=== PATIENT | female | born 1940 | race African-American/Black ===

== ENCOUNTER 2020-12-10 15:05 | Outpatient (NON) | payer MEDICARE, SELFPAY ==
[2020-12-10 15:48] LABS: Add Urine Microscopic? NO; Appearance Urine Clear (Clear); Bilirubin Urine Negative (Negative); Blood Urine Negative (Negative); Color Urine Yellow (Yellow); Glucose Urine UA Negative (Negative); Ketones Urine Negative (Negative); Leukocyte Esterase Ur Negative LEU/UL (NEGATIVE); Nitrate Urine Negative (Negative); Protein Urine Negative (Negative); Specific Grav Ur 1.014 (1.001-1.035); Urobilinogen Urine Negative mg/dL (<2.0)
== END 2020-12-10 15:06 ==
PROVIDERS: PCP Family Medicine; Visit Provider Nurse Practitioner Family
DX: N39.0 Urinary tract infection, site not specified (principal)
CPT/HCPCS: 81003; 87086; 87088

== ENCOUNTER → 2021-08-21 14:26 | Outpatient (CLI) | payer MEDICARE, SELFPAY ==
--- NOTE | ~2021-08-21 | MM_ITS ---
EXAMINATION: MM screening [facility] BI w ary HISTORY: Screening TECHNIQUE: Craniocaudal and mediolateral oblique 3-D tomosynthesis images were obtained and synthetic 2-D images were generated. CAD analysis was submitted and interpreted. COMPARISON: Comparison to multiple prior studies sequentially, with oldest reviewed study dated 04/2014. BREAST PARENCHYMAL COMPOSITION: There are scattered areas of fibroglandular density. FINDINGS: There is no evidence of suspicious mass, calcification, or architectural distortion to sugg est malignancy in either breast. There has been no suspicious interval change. IMPRESSION: 1. No mammographic evidence of malignancy. 2. Recommend routine screening mammography in one year. BI-RADS Category 1: Negative Reviewed, dictated and finalized at location A.
== END ==
PROVIDERS: PCP Family Medicine; Visit Provider Obstetrics & Gynecology
DX: Z12.31 Encounter for screening mammogram for malignant neoplasm of breast (principal)
CPT/HCPCS: 77063; 77067

== ENCOUNTER 2022-08-22 18:06 | Emergency (ER) | payer MEDICARE, SELFPAY ==
[2022-08-22] VITALS (11 sets, daily range): BP systolic 125–229; BP diastolic 58–104; PULSE 58–88; RESP 13–20; TEMP 36.2–36.4; O2SAT 98–100
--- NOTE | ~2022-08-22 | XR_ITS ---
XR chest 2V DATE: 08/22/2022 19:32 INDICATION: Chest pain, left arm pain for one week. History of hypertension. TECHNIQUE: PA and lateral views COMPARISON: 05/28/2016 2 view chest FINDINGS: There is cardiac megaly with left ventricular enlargement. Aortic arch calcification. No hi lar or mediastinal enlargement. There is mild atelectasis at the lung bases. The lungs otherwise appear clear. No pleural effusion or pulmonary vascular congestion or pneumothorax. Thoracolumbar dextroscoliosis. IMPRESSION: Mild atelectasis at the lung bases Cardiomegaly, left ventricular prominence Aortic calcification Reviewed, dictated and finalized at location A.
--- NOTE | 2022-08-22 18:13 | ECG_ITS ---
Measurements Intervals [place] Rate: 60 P: 48 AK: 167 QRS: 13 QRSD: 141 T: 29 QT: 429 QTc: 429 Interpretive Statements SINUS RHYTHM RIGHT BUNDLE BRANCH BLOCK ABNORMAL ECG NO PREVIOUS ECG AVAILABLE FOR COMPARISON Electronically Signed On 08-22-2022 21:29:58 CDT by Tashi Ibarra D.O.
[2022-08-22 18:59] LABS: Basophils Absolute Auto 0.1 K/mm3 (0.0-0.1); Basophils Percent Auto 0.7 % (0.2-1.2); Eosinophils Absolute Auto 0.3 K/mm3 (0-0.3); Eosinophils Percent Auto 3.6 % (0-4.4); Hematocrit 36.4 % (37.0-47.0); Hemoglobin 11.5 g/dL (12.0-15.0); Immature Granulocyte Absolute 0.01 K/mm3 (0.00-0.031); Immature Granulocyte Percent A 0.1 % (0-0.5); Lymphocytes Absolute Auto 2.18 K/mm3 (0.9-3.2); Mean Corpuscular HGB Conc 31.6 g/dl (32-36); Mean Corpuscular Hemoglobin 28.7 pg (26-34); Mean Corpuscular Volume 90.8 fl (80-100); Mean Platelet Volume 9.8 fl (7.4-10.4); Monocytes Absolute Auto 0.6 K/mm3 (0.1-0.6); Monocytes Percent Auto 7.6 % (2.6-8.5); Neutrophils Absolute Auto 4.4 K/mm3 (1.3-6.7); Platelet Count Result 250 k/mm3 (150-375); Red Blood Count 4.01 M/mm3 (4.2-5.4); Red Cell Distribution Width 17.8 % (11.5-14.5); White Blood Count 7.5 K/mm3 (4.5-10.0)
[2022-08-22 19:10] LABS: INR 1.1; Partial Thromboplastin Time 29.3 SECONDS (22.3-36.8); Prothrombin Time 13.5 Seconds (11.1-14.7)
[2022-08-22 19:12] LABS: Alanine Aminotransferase 22 U/L (6-35); Albumin Level 4.3 g/dL (3.5-5.1); Alkaline Phosphatase 109 U/L (38-126); Anion Gap 12 mmol/L (8-16); Aspartate Amino Transferase 23 U/L (14-36); Bilirubin,Total 0.6 mg/dL (0.2-1.3); Blood Urea Nitrogen 17 mg/dL (7-17); Calcium 10.1 mg/dL (8.4-10.2); Carbon Dioxide 24 mmol/L (22-30); Chloride 102 mmol/L (98-107); Estimated Glomerular Filt Rate > 60; Glucose 129 mg/dL (65-110); Lipase 35 U/L (23-300); Potassium 3.9 mmol/L (3.4-5.0); Sodium 138 mmol/L (137-145)
[2022-08-22 19:22] LABS: Troponin I < 0.012 ng/mL (0.000-0.034)
--- NOTE | 2022-08-22 21:11 | ED.GENADULT ---
HPI - General Adult General Chief complaint: Unspecified Stated complaint: high bp, L. arm pain Time Seen by Provider: 08/22/22 20:55 History of Present Illness HPI narrative: This is an 82-year-old female with past medical history of hypertension, hypothyroidism, who presents to the emergency department with elevated blood pressure. She states she took her medications as normal and on checking home blood pressures was in the 200s systolic. She denies any associated chest pain, weakness, loss of consciousness, change/loss of vision. She notes for the past week she has had intermittent tingling of the left arm. This does not appear to be any worse since her pressures have elevated. She has no other complaints today Related Data Home Medications Medication Instructions Recorded Confirmed ascorbate calcium (vitamin C) 500 500 mg PO DAILY PRN 09/23/19 04/16/22 mg tablet aspirin 81 mg chewable tablet 81 mg PO DAILY 09/23/19 04/16/22 (Josette Chewable Low Dose Aspirin) cyanocobalamin (vitamin B-12) 500 500 mcg PO DAILY 09/23/19 04/16/22 mcg tablet (Vitamin B-12) solifenacin 5 mg tablet (Vesicare) 5 mg PO DAILY 09/23/19 04/16/22 valacyclovir 1 gram tablet 2,000 mg PO Q12H 09/23/19 04/16/22 (Valtrex) vitamin E (dl, acetate) 180 mg 400 unit PO DAILY PRN 09/23/19 04/16/22 (400 unit) capsule Allergies Allergy/AdvReac Type Severity Reaction Status Date / Time Quinolones Allergy Mild Unknown Verified 08/22/22 21:59 tetracycline Allergy Mild Unknown Verified 08/22/22 21:59 levofloxacin Allergy Unknown Swelling Verified 08/22/22 21:59 nitrofurantoin Allergy Unknown Unknown Verified 08/22/22 21:59 Penicillins Allergy Unknown Itching Verified 08/22/22 21:59 Sulfa (Sulfonamide Allergy Unknown Itching Verified 08/22/22 21:59 Antibiotics) sulfanilamide Allergy Unknown Unknown Verified 08/22/22 21:59 Review of Systems Review of Systems: CONSTITUTIONAL: Denies fever, chills, or sweats. EYES: Denies visual changes, redness, or discharge. ENT: Denies rhinorrhea, congestion, sore throat, or otalgia. CARDIOVASCULAR: Denies chest pain, palpitations, or edema. RESPIRATORY: Denies cough or dyspnea. GASTROINTESTINAL: Denies abdominal pain, nausea, vomiting, or diarrhea. GENITOURINARY: Denies dysuria or hematuria. SKIN: Denies rash or itching. MUSCULOSKELETAL: Intermittent left arm tingling denies back pain, joint pain, or myalgia. NEUROLOGIC: Denies headache, numbness, dizziness, or weakness. PSYCHIATRIC: Denies anxiety or depression. [facility] Past Medical History Medical History (Updated 08/22/22 @ 21:16 by Dinesh Montes MD) Acute pain of right shoulder CKD (chronic kidney disease), stage III Diabetes mellitus Essential (primary) hypertension Hypothyroidism Obesity Polyosteoarthritis, unspecified Surgical History Surgical History History of appendectomy Status post hysterectomy with oophorectomy Family History Family History Mother Family history of thyroid disease Hypertension Carcinoma of colon Father Cerebrovascular accident Family history of cardiovascular disease Social History Social History Smoking status: Never smoker Second hand tobacco smoke exposure: No Smoking end date: 10/19/1958 Alcohol intake: never Substance use: never Substance use type: does not use Gender identity (if verbalized by the patient): Female Sexual Orientation (if Verbalized by the Patient): Straight or Heterosexual Exam Narrative: GENERAL: Well-well developed, well-nourished, and in no acute distress. HEAD: Normocephalic, atraumatic. EYES: PERRLA and EOMI, normal funduscopic exam ENT: Nares clear, no rhinorrhea or epistaxis. Mucous membranes moist. Oropharynx without tonsillar hypertrophy exudate or other lesions. NECK: Supple. No ad
[2022-08-22] MEDS: cloNIDine HCL 0.1 MG TABLET PO (21:58)
[2022-08-22 22:00] LABS: Troponin I < 0.012 ng/mL (0.000-0.034)
[2022-08-22] MEDS: hydrALAZINE HCL 20 MG/ML VIAL IV PUSH (23:01)
[2022-08-22 23:29] LABS: Appearance Urine Clear (Clear); Bilirubin Urine Negative (Negative); Blood Urine Negative (Negative); Color Urine Yellow (Yellow); Glucose Urine UA Negative (Negative); Ketones Urine Negative (Negative); Leukocyte Esterase Ur Negative LEU/UL (Negative); Nitrate Urine Negative (Negative); Protein Urine Negative (Negative); Urobilinogen Urine 0.2 mg/dL (<2.0)
[2022-08-22 23:30] LABS: Add Urine Microscopic? NO
[2022-08-23 00:01] VITALS: BP 114/56; PULSE 56; RESP 14; O2SAT 100
== END 2022-08-23 00:44 | disposition home or self-care (01) ==
PROVIDERS: Emergency Provider Preventive Medicine Aerospace Medicine; PCP Family Medicine
DX: I12.9 Hypertensive chronic kidney disease with stage 1 through stage 4 chronic kidney disease, or unspecified chronic kidney disease (principal); E11.22 Type 2 diabetes mellitus with diabetic chronic kidney disease; N18.30 Chronic kidney disease, stage 3 unspecified; E03.9 Hypothyroidism, unspecified; M19.90 Unspecified osteoarthritis, unspecified site; E66.9 Obesity, unspecified; Z90.710 Acquired absence of both cervix and uterus; Z90.721 Acquired absence of ovaries, unilateral; I45.10 Unspecified right bundle-branch block; Z79.82 Long term (current) use of aspirin
CPT/HCPCS: 36415; 71046; 80053; 81003; 83690; 84443; 84484; 85025; 85610; 85730; 93005; 96374; 99284; A9270; J0360

== ENCOUNTER 2022-10-06 14:01 | Outpatient (CLI) | payer MEDICARE, SELFPAY ==
--- NOTE | ~2022-10-06 | XR_ITS ---
XR abdomen/kub 1V DATE: 10/06/2022 14:31 INDICATION: Left upper quadrant abdominal pain TECHNIQUE: 2 AP views COMPARISON: None FINDINGS: An apparent radiopaque suture overlies the right pelvic area. There is no evidence of bowel obstruction. The psoas shadows are intact. No visceromegaly is noted. The lung bases are clear. 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 Degenerative changes o f the lower lumbar spine. Included skeletal structures are otherwise unremarkable. IMPRESSION: Nonspecific abdomen Reviewed, dictated and finalized at Location A. Reviewed, dictated and finalized at location A. [employer] HELPER IMPRESSION: Nonspecific abdomen
== END 2022-10-06 14:02 | disposition home or self-care (01) ==
PROVIDERS: PCP Family Medicine; Visit Provider Family Medicine
DX: R10.9 Unspecified abdominal pain (principal); R19.7 Diarrhea, unspecified
CPT/HCPCS: 74018

== ENCOUNTER → 2023-02-06 16:00 | Outpatient (CLI) | payer MEDICARE, SELFPAY ==
--- NOTE | ~2023-02-06 | MM_ITS ---
EXAMINATION: MM screening [facility] BI w ary HISTORY: Screening mammogram TECHNIQUE: Craniocaudal and mediolateral oblique 3-D tomosynthesis images were obtained and synthetic 2-D images were generated. CAD analysis was submitted and interpreted. COMPARISON: 08/21/2021, 12/08/2018, 10/14/2017 BREAST PARENCHYMAL COMPOSITION: There are scattered areas of fibroglandular density. FINDINGS: Again noted is a stable mass in the posterior third of the lower inner breast, consistent w ith a benign finding. No suspicious mass, calcification, or architectural distortion are identified i n either breast to suggest malignancy. There has been no suspicious interval change. IMPRESSION: 1. No mammographic evidence of malignancy. 2. Recommend routine screening mammography while the patient remains in good health. BI-RADS Category 2: Benign finding(s). Reviewed, dictated and finalized at location A. IMPRESSION: 1. No mammographic evidence of malignancy. 2. Recommend routine screening mammography while the patient remains in good he alth. BI-RADS Category 2: Benign finding(s).
== END ==
PROVIDERS: PCP Family Medicine; Visit Provider Obstetrics & Gynecology Gynecology
DX: Z12.31 Encounter for screening mammogram for malignant neoplasm of breast (principal)
CPT/HCPCS: 77063; 77067

== ENCOUNTER 2023-05-11 14:19 | Outpatient (CLI) | payer MEDICARE, SELFPAY ==
[2023-05-11 15:24] LABS: Basophils Absolute Auto 0.1 K/mm3 (0.0-0.1); Basophils Percent Auto 0.7 % (0.2-1.2); Eosinophils Absolute Auto 0.3 K/mm3 (0-0.3); Eosinophils Percent Auto 3.7 % (0-4.4); Hematocrit 36.4 % (37.0-47.0); Hemoglobin 11.4 g/dL (12.0-15.0); Immature Granulocyte Absolute 0.02 K/mm3 (0.00-0.031); Immature Granulocyte Percent A 0.3 % (0-0.5); Lymphocytes Absolute Auto 1.75 K/mm3 (0.9-3.2); Lymphocytes Percent Auto 23.8 % (18.3-44.2); Mean Corpuscular HGB Conc 31.3 g/dl (32-36); Mean Corpuscular Hemoglobin 28.3 pg (26-34); Mean Corpuscular Volume 90.3 fl (80-100); Mean Platelet Volume 10.7 fl (7.4-10.4); Monocytes Absolute Auto 0.6 K/mm3 (0.1-0.6); Monocytes Percent Auto 8.6 % (2.6-8.5); Neutrophils Absolute Auto 4.6 K/mm3 (1.3-6.7); Neutrophils Percent Auto 62.9 % (45.5-73.1); Platelet Count Result 270 k/mm3 (150-375); Red Blood Count 4.03 M/mm3 (4.2-5.4); White Blood Count 7.4 K/mm3 (4.5-10.0)
[2023-05-11 15:31] LABS: Appearance Urine Clear (Clear); Bacteria Urine None Seen /hpf; Bilirubin Urine Negative (Negative); Blood Urine Negative (Negative); Color Urine Yellow (Yellow); Glucose Urine UA Negative (Negative); Ketones Urine Negative (Negative); Leukocyte Esterase Ur Negative LEU/UL (NEGATIVE); Nitrate Urine Negative (Negative); Non Pathogenic Casts 0-2; Protein Urine 1+ mg/dL (Negative); RBC Urine 0-2 /hpf (0-2); Specific Grav Ur 1.024 (1.001-1.035); Squamous Epithelial Cell Urine Few /hpf (Few); Urobilinogen Urine 0.2 mg/dL (<2.0); WBC Urine 0-5 /hpf (0-3); pH Urine 5.5 (5.0-9.0)
[2023-05-11 15:36] LABS: Add Urine Microscopic? YES
== END 2023-05-11 14:20 | disposition home or self-care (01) ==
PROVIDERS: PCP Family Medicine; Visit Provider Family Medicine
DX: R10.9 Unspecified abdominal pain (principal)
CPT/HCPCS: 36415; 81001; 85025

== ENCOUNTER 2023-05-13 12:10 | Emergency (ER) | payer MEDICARE, SELFPAY ==
[2023-05-13] VITALS (11 sets, daily range): BP systolic 167–216; BP diastolic 70–80; PULSE 56–69; RESP 15–24; TEMP 36.3; O2SAT 98–100
--- NOTE | 2023-05-13 13:35 | ECG_ITS ---
Measurements Intervals [place] Rate: 60 P: 51 [place]: 167 QRS: -23 QRSD: 142 T: 31 QT: 420 QTc: 421 Interpretive Statements SINUS RHYTHM POSSIBLE LEFT ATRIAL ENLARGEMENT RIGHT BUNDLE BRANCH BLOCK BASELINE ARTIFACT- V3 ABNORMAL ECG COMPARED TO ECG 08/22/2022 18:40:10 NO SIGNIFICANT CHANGES Electronically Signed On 05-13-2023 16:18:13 CDT by Tashi Ibarra D.O.
[2023-05-13 14:38] LABS: Basophils Percent Auto 0.5 % (0.2-1.2); Eosinophils Absolute Auto 0.2 K/mm3 (0-0.3); Hematocrit 37.9 % (37.0-47.0); Hemoglobin 11.9 g/dL (12.0-15.0); Immature Granulocyte Absolute 0.02 K/mm3 (0.00-0.031); Immature Granulocyte Percent A 0.3 % (0-0.5); Lymphocytes Absolute Auto 1.61 K/mm3 (0.9-3.2); Lymphocytes Percent Auto 20.5 % (18.3-44.2); Mean Corpuscular HGB Conc 31.4 g/dl (32-36); Mean Corpuscular Hemoglobin 28.5 pg (26-34); Mean Corpuscular Volume 90.7 fl (80-100); Mean Platelet Volume 9.9 fl (7.4-10.4); Monocytes Absolute Auto 0.6 K/mm3 (0.1-0.6); Monocytes Percent Auto 7.9 % (2.6-8.5); Neutrophils Absolute Auto 5.3 K/mm3 (1.3-6.7); Neutrophils Percent Auto 67.8 % (45.5-73.1); Platelet Count Result 265 k/mm3 (150-375); Red Blood Count 4.18 M/mm3 (4.2-5.4); Red Cell Distribution Width 17.9 % (11.5-14.5); White Blood Count 7.9 K/mm3 (4.5-10.0)
[2023-05-13 14:47] LABS: Alanine Aminotransferase 21 U/L (6-35); Albumin Level 4.2 g/dL (3.5-5.1); Alkaline Phosphatase 112 U/L (38-126); Anion Gap 6 mmol/L (8-16); Aspartate Amino Transferase 26 U/L (14-36); Bilirubin,Total 0.9 mg/dL (0.2-1.3); Blood Urea Nitrogen 18 mg/dL (7-17); Calcium 10.4 mg/dL (8.4-10.2); Carbon Dioxide 29 mmol/L (22-30); Chloride 104 mmol/L (98-107); Estimated CRCL calculation 53 ml/min; Estimated Glomerular Filt Rate > 60; Glucose 121 mg/dL (65-110); Potassium 4.2 mmol/L (3.4-5.0); Sodium 139 mmol/L (137-145)
[2023-05-13 14:59] LABS: Appearance Urine Clear (Clear); Bacteria Urine None Seen /hpf; Bilirubin Urine Negative (Negative); Blood Urine Negative (Negative); Color Urine Yellow (Yellow); Glucose Urine UA Negative (Negative); Ketones Urine Negative (Negative); Leukocyte Esterase Ur Negative LEU/UL (Negative); Nitrate Urine Negative (Negative); Non Pathogenic Casts 0-2; Protein Urine Trace mg/dL (Negative); RBC Urine 0-2 /hpf (0-2); Specific Grav Ur 1.012 (1.001-1.035); Squamous Epithelial Cell Urine None seen /hpf (Few); Urobilinogen Urine 0.2 mg/dL (<2.0); WBC Urine 0-5 /hpf
[2023-05-13 15:00] LABS: Add Urine Microscopic? YES
--- NOTE | 2023-05-13 16:28 | ED.GENADULT ---
HPI - General Adult General Chief complaint: Recheck/Abnormal Lab/Rx Stated complaint: HTN Time Seen by Provider: 05/13/23 15:33 History of Present Illness HPI narrative: Magui Maldonado is an 83 y/o female with PMHx of HTN, DM, arthritis who reports she was sent here by her chiropractor. Patient states that she saw her PCP yesterday and today she went to her chiropractor and they were concerned because her b/p was reading high above 200 systolic. Magui denies any chest pain/ shortness of breath/ dizziness/vision changes/ abdominal pain/ nausea/vomiting. Related Data Home Medications Medication Instructions Recorded Confirmed ascorbate calcium (vitamin C) 500 500 mg PO DAILY PRN 09/23/19 05/11/23 mg tablet aspirin 81 mg chewable tablet 81 mg PO DAILY 09/23/19 05/11/23 (Josette Chewable Low Dose Aspirin) cyanocobalamin (vitamin B-12) 500 500 mcg PO DAILY 09/23/19 05/11/23 mcg tablet (Vitamin B-12) solifenacin 5 mg tablet (Vesicare) 5 mg PO DAILY 09/23/19 05/11/23 valacyclovir 1 gram tablet 2,000 mg PO Q12H 09/23/19 05/11/23 (Valtrex) vitamin E (dl, acetate) 180 mg 400 unit PO DAILY PRN 09/23/19 05/11/23 (400 unit) capsule Allergies Allergy/AdvReac Type Severity Reaction Status Date / Time Quinolones Allergy Mild Unknown Verified 05/13/23 12:10 tetracycline Allergy Mild Unknown Verified 05/13/23 12:10 levofloxacin Allergy Unknown Swelling Verified 05/13/23 12:10 nitrofurantoin Allergy Unknown Unknown Verified 05/13/23 12:10 Penicillins Allergy Unknown Itching Verified 05/13/23 12:10 Sulfa (Sulfonamide Allergy Unknown Itching Verified 05/13/23 12:10 Antibiotics) sulfanilamide Allergy Unknown Unknown Verified 05/13/23 12:10 Review of Systems Review of Systems: CONSTITUTIONAL: Denies fever, chills, or sweats. EYES: Denies visual changes, redness, or discharge. ENT: Denies rhinorrhea, congestion, sore throat, or otalgia. CARDIOVASCULAR: Denies chest pain, palpitations, or edema. RESPIRATORY: Denies cough or dyspnea. GASTROINTESTINAL: Denies abdominal pain, nausea, vomiting, or diarrhea. GENITOURINARY: Denies dysuria or hematuria. SKIN: Denies rash or itching. MUSCULOSKELETAL: Denies back pain, joint pain, or myalgia. NEUROLOGIC: Denies headache, numbness, dizziness, or weakness. PSYCHIATRIC: Denies anxiety or depression. PMFSH Past Medical History Medical History Acute pain of right shoulder CKD (chronic kidney disease), stage III Diabetes mellitus Essential (primary) hypertension Hypothyroidism Obesity Polyosteoarthritis, unspecified Surgical History Surgical History History of appendectomy Status post hysterectomy with oophorectomy Family History Family History Mother Family history of thyroid disease Hypertension Carcinoma of colon Father Cerebrovascular accident Family history of cardiovascular disease Social History Social History Social History: Smoking status: Never smoker Second hand tobacco smoke exposure: No Alcohol intake: never Substance use: never Substance use type: does not use Lack of Transportation: No Lack of Food: Never True Current Housing: I Have Housing Concerned About Future Housing: No Difficulty Paying Gas/Electric Bills: No Difficulty Paying for Meds: No Currently Unemployed: YES Education: Decline to Answer Difficulty w/ Childcare or Family Care: No Living arrangements: alone Occupation/Education: retired Gender identity (if verbalized by the patient): Female Sexual Orientation (if Verbalized by the Patient): Straight or Heterosexual Exam Narrative: GENERAL: Well-appearing, well-nourished, and in no acute distress. HEAD: Normocephalic, atraumatic. EYES: PERRLA and EOMI. ENT: Nares clear, no
[2023-05-13 17:01] LABS: Troponin I < 0.012 ng/mL (0.000-0.034)
[2023-05-13] MEDS: ACETAMINOPHEN 500 MG TABLET 1000 MG PO (17:13)
[2023-05-13] MEDS: cloNIDine HCL 0.1 MG TABLET PO (17:14)
== END 2023-05-13 18:37 | disposition home or self-care (01) ==
PROVIDERS: General Practice; Emergency Provider Nurse Practitioner Family; PCP Family Medicine
DX: I12.9 Hypertensive chronic kidney disease with stage 1 through stage 4 chronic kidney disease, or unspecified chronic kidney disease (principal); E11.22 Type 2 diabetes mellitus with diabetic chronic kidney disease; N18.30 Chronic kidney disease, stage 3 unspecified; E03.9 Hypothyroidism, unspecified; M19.90 Unspecified osteoarthritis, unspecified site; E66.9 Obesity, unspecified; Z68.32 Body mass index [BMI] 32.0-32.9, adult; Z79.82 Long term (current) use of aspirin; Z90.710 Acquired absence of both cervix and uterus; I45.10 Unspecified right bundle-branch block; R94.31 Abnormal electrocardiogram [ECG] [EKG]
CPT/HCPCS: 36415; 80053; 81001; 84484; 85025; 93005; 99284; A9270

== ENCOUNTER 2023-05-26 07:51 | Outpatient (CLI) | payer MEDICARE, SELFPAY ==
--- NOTE | ~2023-05-26 | CT_ITS ---
EXAMINATION: CT abdomen pelvis w con DATE: 05/26/2023 08:30 INDICATION: Nausea and left-sided abdominal and flank pain TECHNIQUE: Computed tomography (CT) of the abdomen and pelvis was performed with 100 mL Omnipaque-350 intravenous contrast. Automated exposure control and iterative reconstruction technique were employe d. The dose-length product was 777.13 mGy-cm. COMPARISON: None FINDINGS: Mild lingular atelectasis. Heart size is normal. No pericardial or pleural effusion. Liver, gallbladd er, spleen, pancreas, bilateral adrenal glands and kidneys are normal. Tiny fat-containing umbilical hernia. There is mild colonic diverticulosis with a sigmoid predominance. There is no adjacent inflam matory change to suggest diverticulitis. No bowel obstruction. The appendix is not visualized. No per icecal inflammatory change to suggest acute appendicitis. Bladder is normal. The uterus is not identi fied and has likely been surgically resected. No free intraperitoneal gas or fluid. No pathologically enlarged abdominal or pelvic lymphadenopathy. There is calcified atherosclerosis of the aorta and ma ny of the other arteries. There is a short dissection extending for approximately 1.7 cm in length al susana the left side the abdominal aorta distal to the take off of the renal arteries and proximal to th e takeoff of the inferior mesenteric artery. Severe osteoarthritis at the lower lumbar facet joints a nd at the right hip where there is acetabular protrusio. IMPRESSION: 1. Short dissection along the normal caliber abdominal aorta between the levels of the takeoff of the renal arteries and the inferior mesenteric artery. 2. Sigmoid diverticulosis.. Reviewed, dictated and finalized at location L.
== END 2023-05-26 07:52 | disposition home or self-care (01) ==
PROVIDERS: PCP Family Medicine; Visit Provider Family Medicine
DX: R10.9 Unspecified abdominal pain (principal); K57.30 Diverticulosis of large intestine without perforation or abscess without bleeding
CPT/HCPCS: 74177; Q9967

== ENCOUNTER 2024-10-22 21:47 | Emergency (ER) | payer MEDICARE, SELFPAY ==
--- NOTE | ~2024-10-22 | CT_ITS ---
EXAMINATION: CT abdomen pelvis w con no renal mass lesion or scarring is evident. A slightly prominent bilateral hydroureteronephrosis. The urinary bladder appears unremarkable. Status post hysterectomy. INDICATION: Right lower quadrant and lower back pain TECHNIQUE: Computed tomography (CT) of the abdomen and pelvis was performed with 100 CC Omnipaque 350 intravenous contrast. Automated exposure control and iterative reconstruction technique were employe d. Exam dose: 1203.18 mGy-cm total exam DLP. COMPARISON: 05/26/2023 CT abdomen pelvis FINDINGS: Minimal linear atelectasis at the lung bases. Cardiomegaly. No pericardial or pleural effusion. The liver, gallbladder, bile ducts, pancreas, pancreatic duct, spleen and adrenal glands are unremark able. No renal mass lesion or scarring. Mildly prominent bilateral hydroureteronephrosis. The urinary blad kwame is unremarkable. No bladder wall thickening. Status post hysterectomy. Small sliding hiatal hernia. Diverticulosis of the sigmoid colon; no CT evidence of diverticulitis. No bowel obstruction or free a ir. Extensive atherosclerotic plaque and calcification of the abdominal aorta but no aneurysm. There is a stable short segment distal abdominal aortic dissection. No intraperitoneal or retroperitoneal or pelvic mass lesion or adenopathy or ascites. IMPRESSION: Mildly prominent bilateral hydroureteronephrosis Sigmoid diverticulosis; no CT evidence of diverticulitis Small sliding hiatal hernia Short segment stable distal abdominal aortic dissection; no abdominal aortic aneurysm O Reviewed, dictated and finalized at Location A. Reviewed, dictated and finalized at location A. P CUTTER IMPRESSION: Mildly prominent bilateral hydroureteronephrosis Sigmoid diverticulosis; no CT evidence of diverticulitis Small sliding hiatal hernia Short segment stable distal abdominal aortic dissection; no abdominal aortic an eurysm O
[2024-10-22 21:52] VITALS: BP 227/83; PULSE 110; RESP 20; TEMP 37.2; O2SAT 99
[2024-10-22 23:45] LABS: Basophils Absolute Auto 0.1 K/mm3 (0.0-0.1); Basophils Percent Auto 0.4 % (0.2-1.2); Eosinophils Absolute Auto 0.2 K/mm3 (0-0.3); Eosinophils Percent Auto 1.7 % (0-4.4); Hematocrit 35.6 % (37.0-47.0); Immature Granulocyte Absolute 0.06 K/mm3 (0.00-0.031); Immature Granulocyte Percent A 0.5 % (0-0.5); Lymphocytes Absolute Auto 1.13 K/mm3 (0.9-3.2); Lymphocytes Percent Auto 9.7 % (18.3-44.2); Mean Corpuscular HGB Conc 33.7 g/dl (32-36); Mean Corpuscular Hemoglobin 29.1 pg (26-34); Mean Corpuscular Volume 86.4 fl (80-100); Mean Platelet Volume 10.4 fl (7.4-10.4); Monocytes Absolute Auto 1.1 K/mm3 (0.1-0.6); Monocytes Percent Auto 9.5 % (2.6-8.5); Neutrophils Absolute Auto 9.1 K/mm3 (1.3-6.7); Neutrophils Percent Auto 78.2 % (45.5-73.1); Platelet Count Result 307 k/mm3 (150-375); Red Blood Count 4.12 M/mm3 (4.2-5.4); Red Cell Distribution Width 17.8 % (11.5-14.5); White Blood Count 11.7 K/mm3 (4.5-10.0)
[2024-10-22 23:50] LABS: Add Urine Microscopic? YES; Appearance Urine Clear (Clear); Bacteria Urine None Seen /hpf; Bilirubin Urine Negative (Negative); Blood Urine Negative (Negative); Color Urine Yellow (Yellow); Glucose Urine UA Negative (Negative); Ketones Urine Negative (Negative); Leukocyte Esterase Ur Negative LEU/UL (Negative); Nitrate Urine Negative (Negative); Non Pathogenic Casts 0-2; Protein Urine 1+ mg/dL (Negative); RBC Urine 0-2 /hpf (0-2); Squamous Epithelial Cell Urine None Seen /hpf (Few); Urobilinogen Urine 0.2 mg/dL (<2.0); WBC Urine 0-5 /hpf (0-3)
[2024-10-23] LABS: Alanine Aminotransferase 16 U/L (6-35); Albumin Level 4.4 g/dL (3.5-5.1); Alkaline Phosphatase 112 U/L (38-126); Anion Gap 4 mmol/L (4-12); Aspartate Amino Transferase 24 U/L (14-36); Blood Urea Nitrogen 17 mg/dL (7-17); Calcium 10.9 mg/dL (8.4-10.2); Carbon Dioxide 24 mmol/L (22-30); Chloride 105 mmol/L (98-107); Estimated CRCL calculation 37 ml/min; Estimated Glomerular Filt Rate > 60; Glucose 187 mg/dL (65-110); Sodium 133 mmol/L (137-145)
--- NOTE | 2024-10-23 00:02 | ED.FEMALEGU ---
HPI - Female Genitourinary General Chief complaint: Urogenital-Female <RADHA Mendoza Last Filed: 10/23/24 01:45> Stated complaint: bladder pain , RLQ/R flank pain <RADHA Mendoza Last Filed: 10/23/24 01:45> Time Seen by Provider: 10/22/24 22:51 <RADHA Mendoza Last Filed: 10/23/24 01:45> Source: patient <RADHA Mendoza Last Filed: 10/23/24 01:45> Mode of arrival: ambulatory <RADHA Mendoza Last Filed: 10/23/24 01:45> Limitations: no limitations <RADHA Mendoza Last Filed: 10/23/24 01:45> History of Present Illness HPI Narrative: Patient is an 84 y/o female who presents to the ED with c/o right lower abdominal pain. Patient reports he has been having pain intermittently since around [place] time, however pain has become worse over the last couple of days. Present throughout the right lower abdomen radiating around to her right lower back. She has been having urinary frequency/urgency, dysuria. She was seen at her primary care doctor office yesterday and prescribed Tropsium for overactive bladder. States pain has continued to worsen. Has not taken anything for pain. Denies nausea, vomiting, diarrhea, constipation, known fevers. Denies hematuria. <RADHA Mendoza Last Filed: 10/23/24 01:45> Related Data Home medications: Home Medications ?Medication ?Instructions ?Recorded ?Confirmed ?Last Taken ?Type ascorbate calcium (vitamin C) 500 500 mg PO DAILY PRN 09/23/19 09/28/24 Unknown History mg tablet aspirin 81 mg chewable tablet 81 mg PO DAILY 09/23/19 09/28/24 Unknown History (Josette Chewable Low Dose Aspirin) cyanocobalamin (vitamin B-12) 500 500 mcg PO DAILY 09/23/19 09/28/24 Unknown History mcg tablet (Vitamin B-12) vitamin E (dl, acetate) 180 mg 400 unit PO DAILY PRN 09/23/19 09/28/24 Unknown History (400 unit) capsule <Julissa Yoo PA-C - Last Filed: 10/23/24 01:45> Allergies/Adverse reactions: Allergies Allergy/AdvReac Type Severity Reaction Status Date / Time Quinolones Allergy Mild Unknown Verified 09/28/24 14:05 tetracycline Allergy Mild Unknown Verified 09/28/24 14:05 levofloxacin Allergy Unknown Swelling Verified 09/28/24 14:05 nitrofurantoin Allergy Unknown Unknown Verified 09/28/24 14:05 Penicillins Allergy Unknown Itching Verified 09/28/24 14:05 Sulfa (Sulfonamide Allergy Unknown Itching Verified 09/28/24 14:05 Antibiotics) sulfanilamide Allergy Unknown Unknown Verified 09/28/24 14:05 <Julissa Yoo PA-C - Last Filed: 10/23/24 01:45> Review of Systems Review of Systems: All systems reviewed & are unremarkable except as noted in HPI. <Julissa Yoo PA-C - Last Filed: 10/23/24 01:45> All systems reviewed & are unremarkable except as noted in HPI and below <Julissa Yoo PA-C - Last Filed: 10/23/24 01:45> PMFSH Past Medical History Medical History: Medical History Acute pain of right shoulder Obesity Diabetes mellitus CKD (chronic kidney disease), stage III Essential (primary) hypertension Hypothyroidism Polyosteoarthritis, unspecified <Julissa Yoo PA-C - Last Filed: 10/23/24 01:45> Surgical History Surgical History: Surgical History Status post hysterectomy with oophorectomy History of appendectomy <Julissa Yoo PA-C - Last Filed: 10/23/24 01:45> Family History Family History: Family History Mother Family history of thyroid disease Hypertension Carcinoma of colon Father Cerebrovascular accident Family history of cardiovascular disease <Julissa Yoo PA-C - Last Filed: 10/23/24 01:45> Social History Social History: Social History Social History: Smoking status: Never smoker Second hand tobacco smoke exposure: No Alcohol intake: never Substance use: never Substance use type: does not use Lack of Transportation: No Lack of Food: Never True Current Housing: I Have Housing Concerned About Future Housing: No Difficulty Paying Gas/Electric Bills: No Difficulty Paying for Meds: No Currently Unemployed: YES Education: Decline to Answer Difficulty w/ Childcare or Family Care: No Living arrangements: alone Occupation/Education: retired Gender identity (if verbalized by the patient): Female Sexual Orientation (if Verbalized by the Patient): Straight or Heterosexual <Julissa Yoo PA-C - Last Filed: 10/23/24 01:45> Exam Narrative: GENERAL: Elderly, obese with BMI of 32.8, non-toxic, in no acute distress. HEAD: Normocephalic, atraumatic. RESPIRATORY: Airway patent, respirations nonlabored. Clear to auscultation bilaterally, no rales, rhonchi, wheezing. CARDIOVASCULAR: Regular rate and rhythm without murmurs, rubs, or gallops. ABDOMINAL: Soft, mild tenderness to palpation diffusely throughout lower abdomen, worst in right lower quadrant, nondistended. Normoactive BS. MUSCULOSKELETAL: Moves all extremities. No gross deformities. SKIN: Warm, dry, normal color. NEURO: A&O X3. Speech clear. Cranial nerves II-XII grossly intact. Steady gait. No ataxic movements. PSYCHIATRIC: Appropriate mood and affect. Normal interaction. <Julissa Yoo PA-C - Last Filed: 10/23/24 01:45> Course BLOCK MAKING MACHINE OPERATOR/PA Physician Supervision For this patient encounter, I reviewed the BLOCK MAKING MACHINE OPERATOR or PA documentation, treatment plan, and medical decision making; and I had [id number] time with this patient. <Fahad Richter MD - Last Filed: 10/23/24 06:09> Vital Signs Vital signs: Vital Signs Temperature 37.2 C 10/22/24 21:52 Pulse Rate 110 H 10/22/24 21:52 Respiratory Rate 20 10/22/24 21:52 Blood Pressure 227/83 H 10/22/24 21:52 Pulse Oximetry 99 10/22/24 21:52 Oxygen Delivery Room Air 10/22/24 21:52 Temperature 37.0 C 10/23/24 00:46 Pulse Rate 95 10/23/24 00:46 Respiratory Rate 22 H 10/23/24 00:46 Blood Pressure 153/63 H 10/23/24 00:55 Pulse Oximetry 100 10/23/24 00:46 Oxygen Delivery Room Air 10/22/24 21:52 <Julissa Yoo PA-C - Last Filed: 10/23/24 01:45> Vital Signs Temperature 37.2 C 10/22/24 21:52 Pulse Rate 110 H 10/22/24 21:52 Respiratory Rate 20 10/22/24 21:52 Blood Pressure 227/83 H 10/22/24 21:52 Pulse Oximetry 99 10/22/24 21:52 Oxygen Delivery Room Air 10/22/24 21:52 Temperature 37.0 C 10/23/24 00:46 Pulse Rate 95 10/23/24 00:46 Respiratory Rate 22 H 10/23/24 00:46 Blood Pressure 153/63 H 10/23/24 00:55 Pulse Oximetry 100 10/23/24 00:46 Oxygen Delivery Room Air 10/22/24 21:52 <Fahad Richter MD - Last Filed: 10/23/24 06:09> MDM - Female Genitourinary MDM Narrative Medical decision making narrative: Patient presented to ED with several week history of right lower abdominal pain, worsening over last couple days. Also reporting urinary frequency/urgency. Patient was notably hypertensive and tachycardic upon arrival. She does have history of hypertension and is on numerous medications for this. This appears consistent with previous records/ED visits. Will continue to monitor. Potentially pain related. Given Tylenol. Patient did not want anything stronger at this time. CBC is with white blood cell count of 11.7. Neutrophil predominance. No bandemia. CMP is on remarkable. Stable kidney function. Blood sugar mildly elevated 187. Normal LFTs. Urine with 1+ proteinuria, no signs of infection or blood. Viral swabs negative. Patient feeling better after tylenol. Pain improved. CT scan of abdomen/pelvis was obtained and pending. Care signed out to Dr. Richter at shift change pending STAT RAD CT results. <Julissa Yoo PA-C - Last Filed: 10/23/24 01:45> Medical Records Attestation: I reviewed the patient's medical records. <RADHA Mendoza Last Filed: 10/23/24 01:45> Lab Data Attestation: I reviewed the patient's lab results. <Julissa Yoo PA-C - Last Filed: 10/23/24 01:45> Result diagrams: 10/22/24 23:38 10/22/24 23:38 <RADHA Mendoza Last Filed: 10/23/24 01:45> Labs: Lab Results 10/22/24 10/23/24 Range/Units 23:38 00:58 WBC 11.7 H (4.5-10.0) K/mm3 RBC 4.12 L (4.2-5.4) M/mm3 Hgb 12.0 (12.0-15.0) g/dL Hct 35.6 L (37.0-47.0) % MCV 86.4 (80-100) fl MCH 29.1 (26-34) pg MCHC 33.7 (32-36) g/dl RDW 17.8 H (11.5-14.5) % Plt Count 307 (150-375) k/mm3 MPV 10.4 (7.4-10.4) fl Immature Gran % (Auto) 0.5 (0-0.5) % Neut % (Auto) 78.2 H (45.5-73.1) % Lymph % (Auto) 9.7 L (18.3-44.2) % Woodruff % (Auto) 9.5 H (2.6-8.5) % Eos % (Auto) 1.7 (0-4.4) % Baso % (Auto) 0.4 (0.2-1.2) % Lymph # (Auto) 1.13 (0.9-3.2) K/mm3 Woodruff # (Auto) 1.1 H (0.1-0.6) K/mm3 Eos # (Auto) 0.2 (0-0.3) K/mm3 Baso # (Auto) 0.1 (0.0-0.1) K/mm3 Abs Immat Gran (auto) 0.06 H (0.00-0.031) K/mm3 Absolute Neuts (auto) 9.1 H (1.3-6.7) K/mm3 Absolute Nucleated RBC 0.000 (0.0-0.012) K/mm3 Nucleated RBC % 0.0 (0.0-0.2) % Sodium 133 L (137-145) mmol/L Potassium 4.0 (3.4-5.0) mmol/L Chloride 105 (98-107) mmol/L Carbon Dioxide 24 (22-30) mmol/L Anion Gap 4 (4-12) mmol/L BUN 17 (7-17) mg/dL Creatinine 1.00 (0.7-1.0) mg/dL Estim Creat Clear Calc 37 ml/min Estimated GFR > 60 (59 - ) Glucose 187 H (65-110) mg/dL Calcium 10.9 H (8.4-10.2) mg/dL Total Bilirubin 1.0 (0.2-1.3) mg/dL AST 24 (14-36) U/L ALT 16 (6-35) U/L Alkaline Phosphatase 112 (38-126) U/L Total Protein 8.0 (6.3-8.2) g/dL Albumin 4.4 (3.5-5.1) g/dL Urine Color Yellow (Yellow) Urine Appearance Clear (Clear) Urine pH 5.0 (5.0-9.0) Ur Specific [place] 1.010 (1.001-1.035) Urine Protein 1+ H (Negative) mg/dL Urine Glucose (UA) Negative (Negative) mg/dL Urine Ketones Negative (Negative) mg/dL Ur Blood (Man) Negative (Negative) Urine Nitrate Negative (Negative) Urine Bilirubin Negative (Negative) Urine Urobilinogen 0.2 (<2.0) mg/dL Leukocyte Esterase Rfl Negative (Negative) SHREYA/UL Urine RBC 0-2 (0-2) /hpf Urine WBC 0-5 (0-3) /hpf Ur Squamous Epith Cells None seen (Few) /hpf Urine Bacteria None seen /hpf Urine Casts 0-2 Influenza A (RT-PCR) Negative (Negative) Influenza B (RT-PCR) Negative (Negative) RSV (RT-PCR) Negative (Negative) SARS-CoV-2 RNA (RT-PCR) Negative (Negative) <Julissa Yoo PA-C - Last Filed: 10/23/24 01:45> Lab Results 10/22/24 10/23/24 Range/Units 23:38 00:58 WBC 11.7 H (4.5-10.0) K/mm3 RBC 4.12 L (4.2-5.4) M/mm3 Hgb 12.0 (12.0-15.0) g/dL Hct 35.6 L (37.0-47.0) % MCV 86.4 (80-100) fl MCH 29.1 (26-34) pg MCHC 33.7 (32-36) g/dl RDW 17.8 H (11.5-14.5) % Plt Count 307 (150-375) k/mm3 MPV 10.4 (7.4-10.4) fl Immature Gran % (Auto) 0.5 (0-0.5) % Neut % (Auto) 78.2 H (45.5-73.1) % Lymph % (Auto) 9.7 L (18.3-44.2) % Woodruff % (Auto) 9.5 H (2.6-8.5) % Eos % (Auto) 1.7 (0-4.4) % Baso % (Auto) 0.4 (0.2-1.2) % Lymph # (Auto) 1.13 (0.9-3.2) K/mm3 [place] # (Auto) 1.1 H (0.1-0.6) K/mm3 Eos # (Auto) 0.2 (0-0.3) K/mm3 Baso # (Auto) 0.1 (0.0-0.1) K/mm3 Abs Immat Gran (auto) 0.06 H (0.00-0.031) K/mm3 Absolute Neuts (auto) 9.1 H (1.3-6.7) K/mm3 Absolute Nucleated RBC 0.000 (0.0-0.012) K/mm3 Nucleated RBC % 0.0 (0.0-0.2) % Sodium 133 L (137-145) mmol/L Potassium 4.0 (3.4-5.0) mmol/L Chloride 105 (98-107) mmol/L Carbon Dioxide 24 (22-30) mmol/L Anion Gap 4 (4-12) mmol/L BUN 17 (7-17) mg/dL Creatinine 1.00 (0.7-1.0) mg/dL Estim Creat Clear Calc 37 ml/min Estimated GFR > 60 (59 - ) Glucose 187 H (65-110) mg/dL Calcium 10.9 H (8.4-10.2) mg/dL Total Bilirubin 1.0 (0.2-1.3) mg/dL AST 24 (14-36) U/L ALT 16 (6-35) U/L Alkaline Phosphatase 112 (38-126) U/L Total Protein 8.0 (6.3-8.2) g/dL Albumin 4.4 (3.5-5.1) g/dL Urine Color Yellow (Yellow) Urine Appearance Clear (Clear) Urine pH 5.0 (5.0-9.0) Ur Specific [place] 1.010 (1.001-1.035) Urine Protein 1+ H (Negative) mg/dL Urine Glucose (UA) Negative (Negative) mg/dL Urine Ketones Negative (Negative) mg/dL Ur Blood (Man) Negative (Negative) Urine Nitrate Negative (Negative) Urine Bilirubin Negative (Negative) Urine Urobilinogen 0.2 (<2.0) mg/dL Leukocyte Esterase Rfl Negative (Negative) SHREYA/UL Urine RBC 0-2 (0-2) /hpf Urine WBC 0-5 (0-3) /hpf Ur Squamous Epith Cells None seen (Few) /hpf Urine Bacteria None seen /hpf Urine Casts 0-2 Influenza A (RT-PCR) Negative (Negative) Influenza B (RT-PCR) Negative (Negative) RSV (RT-PCR) Negative (Negative) SARS-CoV-2 RNA (RT-PCR) Negative (Negative) <Fahad Richter MD - Last Filed: 10/23/24 06:09> Imaging Data Attestation: I personally reviewed and interpreted this imaging study as follows: <Julissa Yoo PA-C - Last Filed: 10/23/24 01:45> Discharge Plan Discharge Clinical Impression: Right lower quadrant abdominal pain <RADHA Mendoza Filed: 10/23/24 01:45> Patient Disposition: Home, Self-Care <RADHA Mendoza Filed: 10/23/24 01:45> Condition: Stable <RADHA Mendoza Filed: 10/23/24 01:45> Instructions: Antibiotic Form, Abdominal Pain (ED) <RADHA Mendoza Filed: 10/23/24 01:45> Additional Instructions: The CT scan shows that you have some fluid backing up from the bladder to the kidneys please follow-up with your urologist at this time there is no sign of urinary infection or signs of kidney damage there is also no evidence of a kidney stone <RADHA Mendoza Filed: 10/23/24 01:45> Patient Language: Trinidadian <RADHA Mendoza Filed: 10/23/24 01:45> Prescriptions: No Action metronidazole 0.75 % cream 1 applic TOPICAL DAILY Qty: 45 3RF lorazepam [Ativan] 0.5 mg tablet 0.5 mg PO TID PRN (Reason: anxiety) Qty: 30 0RF metformin 500 mg tablet extended release 24 hr 500 mg PO DAILY Qty: 60 5RF Rx Instructions: 1 po qd x 1 wk, then 2 po qd. Take w/ largest meal. cyanocobalamin (vitamin B-12) [Vitamin B-12] 500 mcg tablet 500 mcg PO DAILY ascorbate calcium (vitamin C) 500 mg tablet 500 mg PO DAILY PRN vitamin E (dl, acetate) 400 unit capsule 400 unit PO DAILY PRN aspirin [Josette Chewable Aspirin] 81 mg tablet,chewable 81 mg PO DAILY carvedilol 25 mg tablet See Rx Instructions .ROUTE .COMPLEX Qty: 180 3RF Dose Instruction: TAKE 1 TABLET BY MOUTH TWICE DAILY WITH FOOD Rx Instructions: TAKE 1 TABLET BY MOUTH TWICE DAILY WITH FOOD levothyroxine 125 mcg tablet See Rx Instructions .ROUTE .COMPLEX Qty: 145 2RF Dose Instruction: TAKE 1 TABLET BY MOUTH DAILY ON THURSDAY THROUGH THURSDAY AND 2 TABLETS DAILY ON THURSDAY THROUGH THURSDAY Rx Instructions: TAKE 1 TABLET BY MOUTH DAILY ON THURSDAY THROUGH THURSDAY AND 2 TABLETS DAILY ON THURSDAY THROUGH THURSDAY clonidine HCl 0.1 mg tablet See Rx Instructions .ROUTE .COMPLEX Qty: 200 2RF Dose Instruction: TAKE 1 TABLET BY MOUTH TWICE DAILY Rx Instructions: TAKE 1 TABLET BY MOUTH TWICE DAILY irbesartan 150 mg tablet See Rx Instructions .ROUTE .COMPLEX Qty: 100 2RF Dose Instruction: TAKE 1 TABLET BY MOUTH DAILY Rx Instructions: TAKE 1 TABLET BY MOUTH DAILY amlodipine 10 mg tablet See Rx Instructions .ROUTE .COMPLEX Qty: 100 2RF Dose Instruction: TAKE 1 TABLET BY MOUTH DAILY Rx Instructions: TAKE 1 TABLET BY MOUTH DAILY hydrochlorothiazide 25 mg tablet See Rx Instructions .ROUTE .COMPLEX Qty: 100 2RF Dose Instruction: TAKE 1 TABLET BY MOUTH DAILY Rx Instructions: TAKE 1 TABLET BY MOUTH DAILY <Julissa Yoo PA-C - Last Filed: 10/23/24 01:45> Follow-up/Referrals: Marlo Huang MD [Primary Care Provider] - <Julissa Yoo PA-C - Last Filed: 10/23/24 01:45> Time of Disposition: 06:02 <Julissa Yoo PA-C - Last Filed: 10/23/24 01:45> 06:02 <Fahad Richter MD - Last Filed: 10/23/24 06:09> Sign Out Sign Out Data: Patient Sign Out occurred on 10/23/24 at 01:50. Patient's care was discussed, and care was transferred from Julissa Yoo PA-C to Fahad Richter MD. <Julissa Yoo PA-C - Last Filed: 10/23/24 01:45>
[2024-10-23] MEDS: ACETAMINOPHEN 500 MG TABLET 1000 MG PO (00:16)
[2024-10-23 00:46] VITALS: BP 212/94; PULSE 95; RESP 22; TEMP 37; O2SAT 100
[2024-10-23 00:55] VITALS: BP 153/63
[2024-10-23 01:39] LABS: Influenza A QL RT-PCR Negative (Negative); Influenza B QL RT-PCR Negative (Negative); RSV RNA, RT-PCR Negative (Negative); SARS-CoV-2 RNA PCR Negative (Negative)
== END 2024-10-23 06:29 | disposition home or self-care (01) ==
PROVIDERS: Physician Assistant; Emergency Provider Emergency Medicine; PCP Family Medicine
DX: R10.31 Right lower quadrant pain (principal); Z20.822 Contact with and (suspected) exposure to COVID-19; E11.22 Type 2 diabetes mellitus with diabetic chronic kidney disease; I12.9 Hypertensive chronic kidney disease with stage 1 through stage 4 chronic kidney disease, or unspecified chronic kidney disease; N18.30 Chronic kidney disease, stage 3 unspecified; E03.9 Hypothyroidism, unspecified; E66.9 Obesity, unspecified; Z68.32 Body mass index [BMI] 32.0-32.9, adult; M19.90 Unspecified osteoarthritis, unspecified site; Z90.710 Acquired absence of both cervix and uterus; Z79.84 Long term (current) use of oral hypoglycemic drugs; Z79.82 Long term (current) use of aspirin; Z79.899 Other long term (current) drug therapy
CPT/HCPCS: 36415; 74177; 80053; 81001; 85025; 87637; 99284; A9270; Q9967

== ENCOUNTER 2024-12-29 13:13 | Outpatient (CLI) | payer MEDICARE, SELFPAY ==
--- NOTE | ~2024-12-29 | MM_ITS ---
EXAMINATION: MM diagnostic randell BI w ary HISTORY: Right breast pain, now resolved TECHNIQUE: 3-D tomosynthesis images of the breasts were performed and synthetic 2-D images were gener ated. CAD analysis was submitted and interpreted. COMPARISON: 02/06/2023, 08/21/2021, 12/08/2018 BREAST PARENCHYMAL COMPOSITION:Not Dense. There are scattered areas of fibroglandular density. FINDINGS: Parenchymal pattern of both breasts is unchanged. No suspicious mass lesion or distortion. No suspicious microcalcification. IMPRESSION: No mammographic evidence for malignancy. BI-RADS Category 1: Negative Reviewed, dictated and finalized at location .
--- OUTSIDE RECORDS SUMMARY | 2024-12-29 14:52 | XMS_ITS | Referral Summary ---
Author Organization [facility] Address [address] [place] [id number] Care Team Providers Care Director Data Processing Name Role Phone Marlo Huang MD Primary Care Provider Allergies Active Allergy Reactions Criticality Noted Date Comments Levofloxacin Penicillins Itching Reaction: Itching, , Sulfa (Sulfonamide Antibiotics) Sulfanilamide Itching Reaction: Itching, Medications amLODIPine (NORVASC) 10 mg tablet 9 Active carvedilol (COREG) 12.5 mg tablet 9 Active cloNIDine (CATAPRES) 0.1 mg tablet 9 Active irbesartan-hydr ochlorothiazide (AVALIDE) 150-12.5 mg per tablet 9 Active levothyroxine (SYNTHROID, LEVOTHROID) 125 mcg tablet 8 Active clobetasoL (TEMOVATE) 0.05 % ointment Apply topically twice daily as needed to lichen planus rash on trunk and extremities 60 g 3 0 Active ketoconazole (NIZORAL) 2 % cream Apply topically twice daily to feet 60 g 11 0 Active Active Problems Problem Noted Date Diagnosed Date Postinflammatory hyperpigmentation 03/09/2017 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 Rash 11/24/2016 Keratosis, senilis 10/27/2016 Lichen planus 10/27/2016 Vitiligo 03/04/2014 Overview (01/23/2017): Vitiligo Hypertension 03/04/2014 Overview (01/23/2017): HYPERTENSION NOS Hypothyroidism 03/04/2014 Overview (01/23/2017): HYPOTHYROIDISM NOS Social History Tobacco Use Types Packs/Day Years Used Date Smoking Tobacco: Never Comments Unknown Sex and Gender Information Value Date Recorded Sex Assigned at Not on file Legal Sex Female 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
--- OUTSIDE RECORDS SUMMARY | 2024-12-29 14:52 | XMS_ITS | Encounter Summary ---
Author Organization [facility] Address [facility] [place] [address] Care Team Providers Care Oil Exploration Engineer Name Role Phone Marlo Huang MD Primary Care Provider [phone] Encounter Details Date Type Department Care Team (Late st Contact Info) Description 06/03/2023 Abstract [facility], [facility] [address] [place] [address] Tosin Valentine MA Social History Tobacco Use Types Packs/Day Years Used Date Smoking Tobacco: Never Alcohol Use Standard Drinks/Week Comments Never 0 (1 standard drink = 0.6 oz pur e alcohol) Comments Unknown Sex and Gender Information Value Date Recorded Sex Assigned at Not on file Legal Sex Female 7:36 PM CDT Gender Identity Not on file Sexual Orientation Not on file documented as of this encounter Plan of Treatment Upcoming Encounters Date Type Department Care Team (Late Contact Info) Description 07/24/2025 8:00 AM CDT Appointment [facility] [place], [place] [id number] Dionicio Arguello MD Three [facility]. [facility] [address] [place] [address] 07/27/2025 11:45 AM CDT Office Visit [facility], [facility] [address] [place] [address] Dionicio Arguello MD [address] [facility] [address] [place] [address] documented as of this encounter Procedures Procedure Name Priority Date/Time Associated Diagnosis Comments COMPREHENSIVE METABOLIC PANEL Routine 05/13/2023 CBC, MANUAL DIFF Routine 05/13/2023 documented in this encounter Results * COMPREHENSIVE METABOLIC PANEL (05/13/2023) SODIUM S/P/B 139 GLUCOSE 121 mg/dL AST 26 BUN 18 CREATININE S/P/B 0.70 0.5 - 1.0 CALCIUM S/P/B 10.4 POTASSIUM S/P/B 4.2 CHLORIDE S/P/B 104 ALT 21 GFR ESTIMATE >60 Narrative Resulting Agency Comment us Default History Genericprovider LABORATORY Final Result * CBC, MANUAL DIFF (05/13/2023) WBC 7.9 HGB 11.9 HCT 37.9 PLT 265 Narrative Resulting Agency Comment us Default History Genericprovider LABORATORY Final Result documented in this encounter Visit Diagnoses Not on filedocumented in this encounter Care Teams Oil Exploration Engineer Relationship Specialty Start Date End Date Marlo Huang MD [address] [place] [address] PCP - General FAMILY PRACTICE 06/02/23 documented as of this encounter
--- OUTSIDE RECORDS SUMMARY | 2024-12-29 14:52 | XMS_ITS | Clinical Summary ---
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
--- OUTSIDE RECORDS SUMMARY | 2024-12-29 14:52 | XMS_ITS | Continuity of Care Document ---
Author Organization [facility] Address [address] [place] [address] Phone Care Team Providers Care Professional Skateboarder Name Role Phone [facility] Unavailable Unavail able Sickage, Adelina Unavailable Unavailable Procedures Procedure Date Progressive Lens Per Lens Anti-reflective Coating Eye Exam & Treatment Refraction Vision Svcs Frames Purchases SV Poly Carb Sph Tappen To +/- 4 009 Tax - Medical No Charge Glasses Check TF Polycarb Sphcyl Tappen To +/-4d .12-2d Progressive Lens Per Lens Frames Deluxe Anti-reflective Coating Tax - Medical Frames Deluxe Progressive Lens, Polycarb Anti-reflective Coating Tax - Medical Tint Photochromatic, Polycarb 9 Eye Exam & Treatment No Script Refraction Eye Exam Established Pt No Script Office/outpatient Visit, New Advance Directives Directive Yes / No Effective Date File Name No Information Encounters Encounter Description Practice Location Reason(s) For Visit Diagnoses Date Provider Providers [facility]ied on [facility], [address], [place], [place], [address], [place] tel:[phone] [facility] No Information Aug-2 6-201 0 [facility] . [address] [facility], [address], [place], [place], [address], [place]. tel:[phone] Consulting Provider: Adelina Le, [address] [place], [address]. tel:[phone] [facility], [address], [place], [place], [address], [place] tel:[phone] [facility] No Information 9-201 0 Doisy Edbri. [address] , [address], [place], [address], [place]. tel:[phone] [facility], [address], [place], [place], [address], [place] tel:[phone] [facility] [place] No Information 9200 9 [facility] . [address], [address], [place], [place], [address], [place]. tel:[phone] Referring Provider: Christiano Colunga, [facility] [facility], [place], [address]. tel:[phone] g Provider: Sabrina Villela, [address] [place], [address]. tel:[phone] [facility], [address], [place], [place], [address], [place] tel:[phone] [facility] No Information 8200 9 Doisy Edbri. [address] , [address], [place], [address], [place]. tel:[phone] [facility], [address], [place], [place], [address], [place] tel:[phone] [facility] No Information 5200 9 [facility] . [address] [facility], [address], [place], [place], [address], . tel:[phone] Referring Provider: Christiano Colunga, [address], [place], [address]. tel:[phone] pastor Provider: Adelina Le, [address] [place], [place], [facility]. tel:[phone] [facility], [address], [place], [place], [address], [place] tel:[phone] [facility] No Information 5200 9 [facility] . [address] [facility], [address], [place], [place], [address], . tel:[phone] Consulting Provider: Adelina Le, [address] [place], [place], [facility]. tel:[phone] [facility], [address], [place], [place], [address], [place] tel:[phone] [facility] No Information 3 0-200 9 Swati Alvarado. [facility] [address], [address], [place], [place], [facility], [place]. tel:[phone] [facility], [address], [place], [place], [address], [place] tel:[phone] [facility] No Information 2 3200 9 Swati Alvarado. [facility], [place], [address], [place]. tel:[phone] Office/outpat ient Visit, New [facility], [address], [place], [place], [address], [place] tel:[phone] [facility] Corporate [place] No Information Nov0 3-200 7 Winn OD Reyes. [address], [address], [place], [place], [facility], [place]. tel:[phone] Family History Family Member Type Diagnosis Age At Onset No Information Payers Payer name Insurance type Covered alliance party ID Authoriza tion(s) No Information Social History Type Description Quantity Date Captured Comments Sex Female Smoking Status No Information Chief Complaint And Reason For Visit No Information Reason For Referral Reason For Referral No Information History Of Present Illness Encounter Date Complaint History Of Prese nt Illness No Information Functional Status Date Functional Assessmen t No Information Instructions Date Instruction Additional Infor mation No Information Assessments Type Assessment Date No Information Patient Care Teams Name Effective Dates (start - stop) Status Members No Information
--- OUTSIDE RECORDS SUMMARY | 2024-12-29 14:52 | XMS_ITS | Clinical Summary ---
Author Organization [facility] Address [address] [place] [address] Care Team Providers Care News Agent Name Role Phone Marlo Huang MD Primary Care Provider [phone] Allergies Active Allergy Reactions Criticality Noted Date Comments Levofloxacin Swelling Medium 06/02/2023 Nitrofurantoin Unknown Medium 06/02/2023 Penicillins Itching Medium 06/02/2023 Quinolones Unknown Medium 06/02/2023 Sulfa Antibiotics Itching Medium 06/02/2023 Sulfanilamide Unknown Medium 06/02/2023 Tetracycline Unknown Medium 06/02/2023 Medications hydroCHLOROthia zide (HYDRODIURIL) 25 MG tablet 05/14/2023 Active irbesartan (AVAPRO) 150 MG tablet 05/10/2023 Active levothyroxine (SYNTHROID) 125 MCG tablet 05/18/2023 Active LORazepam (ATIVAN) 0.5 MG tablet Take 1 tablet (0.5 mg total) by mouth 3 (three) times daily as needed. 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 Hypertension 03/04/2014 Overview (06/10/2023): HYPERTENSION NOS Hypothyroidism 03/04/2014 Overview (06/10/2023): HYPOTHYROIDISM NOS Vitiligo 03/04/2014 Overview (06/10/2023): Vitiligo Immunizations Name Administration Dates Next Due Influenza (Generic) 08/28/2014,10/14/2012 Influenza Adult (Generic) 08/15/2019,,08/12/2017, 016,08/20/2013 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[employer]), MRNA, LNP-S, PF, 50 MCG/ 0.25 ML DOSE 03/22/2022,09/15/2021 Zoster (Zostavax) 68703 Unt/0.65Ml 08/26/2015 Family History Medical History Relation Comments cad Father cerebrovascular accident Father Hypertension Mother Thyroid Disease Mother carcinoma of colon Mother Relation Status Comments Father Mother Social History Tobacco Use Types Packs/Day Years [...] Sign Reading Time Taken Comments Blood Pressure 180/70 08/04/2024 3:45 PM CDT Pulse 70 08/04/2024 3:45 PM CDT Temperature - - Respiratory Rate - - Oxygen Saturation - - Inhaled Oxygen Concentration - - Weight 86.2 kg (190 lb) 08/04/2024 3:45 PM CDT Height 160 cm (5' 3 ) 08/04/2024 3:45 PM CDT Body Mass Index 33.66 08/04/2024 3:45 PM CDT Plan of Treatment Upcoming Encounters Date Type Department Care Team (Late st Contact Info) Description 07/24/2025 8:00 AM CDT Appointment [facility] ONE [facility] [place] [address] Dionicio Arguello MD Three [facility]. [facility] [address] [place], [place] [id number] 07/27/2025 11:45 AM CDT Office Visit [facility] THREE [facility], [address] [place], [place] [id number] Dionicio Arguello MD Three [facility]. [address] [place], [place] [id number] Health Maintenance Due Date Last Done Comments DTaP, Tdap and Td Vaccines (1 - Tdap) 1959 Annual Medicare Wellness Visit 2004 Pneumococcal Vaccine: 65+ Years (1 of 1 - PCV) 2004 RSV Immunization or 60+ Years (1 - 1-dose 75+ series) 2014 Zoster Vaccines (2 of 3) 10/21/2015 08/26/2015 COVID-19 Vaccine ( season) 2024 01/24/2023, 03/22/2022, 09/15/2021, Additional history exists Influenza Adult (#1) 2024 08/15/2019, 08/09/2018, 08/12/2017, Additional history exists Meningococcal B Vaccine Aged Out No l onger eligible based on patient's age to complete this topic Meningococcal Vaccine Aged Out No pati sultana eligible based on patient's age to complete this topic RSV Immunizations Under 20 Months Aged Out No longer eligible based on patient's age to complete this topic Insurance [facility] Care Teams News Agent Relationship Specialty Start Date End Date Marlo Huang MD [address] [place], [place] [id number] PCP - General FAMILY PRACTICE 06/02/23
== END 2024-12-29 13:14 | disposition home or self-care (01) ==
PROVIDERS: PCP Family Medicine; Visit Provider Nurse Practitioner Women's Health
DX: N64.4 Mastodynia (principal)
CPT/HCPCS: 77062; 77066; G0279

== ENCOUNTER 2025-02-12 10:01 | Emergency (ER) | payer MEDICARE, SELFPAY ==
--- NOTE | ~2025-02-12 | CT_ITS ---
EXAMINATION: CT brain wo con DATE: 02/12/2025 10:52 INDICATION: Fall with head injury TECHNIQUE: Computed tomography (CT) of the head was performed without intravenous contrast. Sagittal and coronal reconstructions were performed. The mA was adjusted according to patient size. Iterative reconstruction technique was employed. The dose-length product was 605.33 mGy-cm. COMPARISON: head CT dated 01/08/2007 FINDINGS: No fracture. There are small old lacunar infarcts at the bilateral basal ganglia including at the lef t lentiform nucleus, the bilateral caudate nuclei and anterior limbs of the bilateral internal capsul es. No acute intracranial hemorrhage, acute infarction or abnormal extra axial fluid collection. Ther e is moderate to severe scattered white matter hypoattenuation consistent with chronic small vessel i schemic disease. Symmetric prominence of the sulci consistent with mild age-appropriate diffuse cereb ral volume loss. Ventricles are normal and symmetric. No mass/mass effect. Changes of right intraocul ar lens replacement. The orbits, paranasal sinuses and mastoid air cells are normal. Atherosclerotic ulcerations at the bilateral carotid siphons. IMPRESSION: 1. No fracture or acute intracranial process. 2. A few old lacunar infarcts at the bilateral basal ganglia. 3. Age-related changes including mild diffuse volume loss and moderate to severe scattered nonspecifi c white matter hypoattenuation consistent with chronic small vessel ischemic disease. Reviewed, dictated and finalized at location A. IMPRESSION: 1. No fracture or acute intracranial process. 2. A few old lacunar infarcts at the bilateral basal ganglia. 3. Age-related changes including mild diffuse volume loss and moderate to sever e scattered nonspecific white matter hypoattenuation consistent with chronic sm all vessel ischemic disease.
--- NOTE | ~2025-02-12 | XR_ITS ---
EXAMINATION: XR shoulder LT min 2V DATE: 02/12/2025 10:38 INDICATION: Left shoulder pain post fall TECHNIQUE: AP internally and externally rotated, AP oblique externally rotated and transscapular Y vi ews of the affected shoulder were obtained. COMPARISON: None FINDINGS: Normal alignment. No fracture.Mild glenohumeral and acromioclavicular osteoarthritis. Anterior subac romial spur. Visualized portion of the lungs are clear. Soft tissues are unremarkable. IMPRESSION: Mild left acromioclavicular and glenohumeral osteoarthritis. Reviewed, dictated and finalized at location A.
--- OUTSIDE RECORDS SUMMARY | 2025-02-12 10:04 | XMS_ITS | Clinical Summary ---
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 MEDIC[facility] Address: [facility] [address] [place] [address] Care Teams Requisition Approver Relationship Specialty Start Date End Date Marlo Huang MD [address] [place] [address] PCP - General Family Medicine 05/16/20
--- OUTSIDE RECORDS SUMMARY | 2025-02-12 10:04 | XMS_ITS | Encounter Summary ---
Author Organization [facility] Address [facility] [place] [address] Care Team Providers Care Diagnostic Tech Name Role Phone Marlo Huang MD Primary Care Provider [phone] Encounter Details Date Type Department Care Team (Late st Contact Info) Description 06/03/2023 [facility] THREE [facility], [facility] [address] [place] [address] Tosin Valentine MA Social History Tobacco Use [...] Info) Description 07/24/2025 8:00 AM CDT Appointment [facility] [address] [place], [place] [address] Dionicio Arguello MD Three [facility]. [facility] [address] [place] [address] 07/27/2025 11:45 AM CDT Office Visit [facility] THREE [facility], [facility] [address] [place] [address] Dionicio Arguello MD [address] [place] [address] documented as of this encounter Procedures Procedure [...] on filedocumented in this encounter Care Teams Diagnostic Tech Relationship Specialty Start Date End Date Marlo Huang MD [address] [place] [address] PCP - General FAMILY PRACTICE 06/02/23 documented as of this encounter
--- OUTSIDE RECORDS SUMMARY | 2025-02-12 10:04 | XMS_ITS | Referral Summary ---
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 Gender Identity Not on file Sexual Orientation Not on file Last Filed Vital Signs Vital Sign Reading Time Taken Comments Blood Pressure - - Pulse - - Temperature 36.2 C (97.1 F) 08/24/2020 10:20 AM SENIOR PRODUCTION MANAGER Respiratory Rate - - Oxygen Saturation - - Inhaled Oxygen Concentration - - Weight - - Height - - Body Mass Index - - Plan of Treatment Not on file Insurance [facility] Address: [address] [address] [facility] Address: [facility] [address] [place] [address] Care Teams Shot Blaster Relationship Specialty Start Date End Date Marlo Huang MD [address] [facility] [address] [place] [address] PCP - General Family Medicine 05/16/20
--- OUTSIDE RECORDS SUMMARY | 2025-02-12 10:04 | XMS_ITS | Clinical Summary ---
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 [place] [address] Dionicio Arguello MD Three [facility]. [address] [place], [place] [id number] 07/27/2025 11:45 AM CDT Office Visit [facility] THREE [facility], [address] [place], [place] [id number] Dionicio Arguello MD Three [facility]. [address] [place], [place] [phone] Health Maintenance Due Date Last Done Comments DTaP, Tdap and Td Vaccines (1 - Tdap) 1959 Pneumococcal Vaccine: 50+ Years (1 of 1 - PCV) 1989 Annual Medicare Wellness Visit 2004 RSV Immunization or 60+ Years (1 - 1-dose 75+ series) 2014 Zoster Vaccines (2 of 3) 10/21/2015 08/26/2015 COVID-19 Vaccine ( season) 2024 01/24/2023, 03/22/2022, 09/15/2021, Additional history exists Meningococcal B Vaccine Aged Out No l onger eligible based on patient's age to complete this topic Meningococcal Vaccine Aged Out No pati sultana eligible based on patient's age to complete this topic RSV Immunizations Under 20 Months Aged Out No longer eligible based on patient's age to complete this topic Insurance [facility] Care Teams Architectural Intern Relationship Specialty Start Date End Date Marlo Huang MD [address] [place] [id number] PCP - General FAMILY PRACTICE 06/02/23
--- OUTSIDE RECORDS SUMMARY | 2025-02-12 10:04 | XMS_ITS | Continuity of Care Document ---
Author Organization [facility] Address [address] [place] [address] Phone Care Team Providers Care Senior Credit Officer Name Role Phone [facility] Unavailable Unavail able Sickage, Adelina Unavailable Unavailable Procedures Procedure Date Progressive Lens Per Lens Anti-reflective Coating Eye Exam & Treatment Refraction Vision Svcs Frames Purchases SV Poly Carb Sph Jefferson To +/- 4 009 Tax - Medical No Charge Glasses Check TF Polycarb Sphcyl Jefferson To +/-4d .12-2d Progressive Lens Per Lens [...] Diagnoses Date Provider Providers Copied on [facility]counter [facility], [address], [place], [place], [address], [place] tel:[phone] [facility] No Information Aug-2 6-201 0 [facility] . [address], [place], [place], [address], [place]. tel:[phone] Consulting Provider: Adelina Le, [address] [place], [address]. tel:[phone] [facility] Eye [facility], [address], [place], [place], [address], [place] tel:[phone] [facility] No Information 9-201 0 Doisy Edbri. [address] , [address], [place], [address], [place]. tel:[phone] [facility], [address], [place], [place], [address], [place] tel:[phone] [facility] No Information 9200 9 [facility] . [address], [address], [place], [place], [address], [place]. tel:[phone] Referring Provider: Christiano Colunga, [facility], [place], [address]. tel:[phone] g Provider: Sabrina Villela, [address] [place], [address]. tel:[phone] [facility], [address], [place], [place], [address], [place] tel:[phone] [facility] No Information 8200 9 Doisy Edbri. [address] , [address], [place], [address], [place]. tel:[phone] [facility], [address], [place], [place], [address], [place] tel:[phone] [facility] No Information 5200 9 [facility] . [address], [address], [place], [place], [address], . tel:[phone] Referring Provider: Christiano Colunga, [facility] [address], [place], [address]. tel:[phone] pastor Provider: Adelina Le, [address] [place], [place], [facility]. tel:[phone] [facility] Eye [facility], [address], [place], [place], [address], [place] tel:[phone] [facility] No Information 5200 9 [facility] . [address], [place], [place], [address], . tel:[phone] Consulting Provider: Adelina Le, [address] [place], [place], [facility]. tel:[phone] [facility] Eye [facility], [address], [place], [place], [address], [place] tel:[phone] [facility] No Information 3 0-200 9 Swati Alvarado. [facility], [place], [place], [facility], [place]. tel:[phone] [facility] Eye [facility], [address], [place], [place], [address], [place] tel:[phone] [facility] No Information 2 3200 9 Swati Alvarado. [facility], [place], [address], [place]. tel:[phone] Office/outpat ient Visit, [facility] Eye [facility], [address], [place], [place], [address], [place] tel:[phone] [facility] Corporate [place] No Information Nov0 3-200 7 Winn OD Reyes. [address], [address], [place], [place], [facility], [place]. tel:[phone] Family History Family Member Type Diagnosis Age [...]
[2025-02-12 10:08] VITALS: PULSE 77; RESP 16; TEMP 36.3; O2SAT 100
--- OUTSIDE RECORDS SUMMARY | 2025-02-12 10:20 | XMS_ITS | Continuity of Care Document ---
Author Organization [facility] [place] [address] [place] [address] Phone Care Team Providers Care Benefits Advisor Name Role Phone [facility] Unavailable Unavail able Sickage, Adelina Unavailable Unavailable Procedures Procedure Date Progressive Lens Per Lens Anti-reflective Coating Eye Exam & Treatment Refraction Vision Svcs Frames Purchases SV Poly Carb Sph Sheffield To +/- 4 009 Tax - Medical No Charge Glasses Check TF Polycarb Sphcyl Sheffield To +/-4d .12-2d Progressive Lens Per Lens [...] Diagnoses Date Provider Providers [facility] on [facility], [address], [place], [place], [id number], [place] tel:[phone] [facility] No Information Aug-2 6-201 0 [facility] . [address], [address], [place], [place], [id number], [place]. tel:[phone] Consulting Provider: Adelina Le, [address] [place], [address]. tel:[phone] [facility], [address], [place], [place], [id number], [place] tel:[phone] [facility] No Information 9-201 0 Doisy Edbri. [address] , [address], [place], [address], [place]. tel:[phone] [facility], [address], [place], [place], [id number], [place] tel:[phone] [facility] No Information 9200 9 [facility] . [address], [address], [place], [place], [address], [place]. tel:[phone] Referring Provider: Christiano Colunga, [facility], [place], [address]. tel:[phone] g Provider: Sabrina Villela, [address] [place], [address]. tel:[phone] [facility], [address], [place], [place], [id number], [place] tel:[phone] [facility] No Information 8200 9 Doisy Edbri. [address] , [address], [place], [address], [place]. tel:[phone] [facility], [address], [place], [place], [id number], [place] tel:[phone] [facility] No Information 5200 9 [facility] . [address], [address], [place], [place], [id number], . tel:[phone] Referring Provider: Christiano Colunga, [address], [place], [address]. tel:[phone] pastor Provider: Adelina Le, [address] [place], [place], [facility]. tel:[phone] [facility], [address], [place], [place], [address], [place] tel:[phone] [facility] No Information 5200 9 [facility] . [address], [address], [place], [place], [id number], . tel:[phone] Consulting Provider: Adelina Le, [address] [place], [place], [facility]. tel:[phone] [facility], [address], [place], [place], [id number], [place] tel:[phone] [facility] No Information 3 0-[address] [facility], [place], [place], [facility], [place]. tel:[phone] [facility], [address], [place], [place], [id number], [place] tel:[phone] [facility] No Information [address] [facility], [place], [address], [place]. tel:[phone] Office/outpat ient Visit, [facility], [address], [place], [place], [id number], [place] tel:[phone] [facility] No Information Nov0 3-200 7 Winn OD Reyes. [address], [address], [place], [place], [facility], [place]. tel:[phone] Family History Family Member Type Diagnosis Age At Onset No Information Payers Payer name Insurance type Covered green party ID Authoriza tion(s) No Information Social [...]
--- NOTE | 2025-02-12 10:25 | ED.UPPEXIN ---
HPI - Extremity Injury (Upper) General Chief Complaint: Extremity Injury, Upper Stated Complaint: fall, L shoulder pain Time Seen by Provider: 02/12/25 10:12 History of Present Illness HPI narrative: 84-year-old female with a past medical history including hypertension, diabetes, CKD. She presents after a mechanical slip and fall outside the [place] onto grass. Patient is with her family friend who witnessed the event. She tripped and fell laterally onto her left shoulder and hit her head but did not lose consciousness. Patient denies any blood thinner use. Was able to get up and self ambulate. Presenting with left-sided shoulder pain and decreased range of motion from pain. No weakness or pain or loss of strength in the distal upper extremity. Neurovascularly intact. Denies any vision changes, headache, nausea, vomiting, abdominal pain, back pain. Did not take anything for pain prior to arrival. Denies any prodromal symptoms prior to her fall. Denies any neck pain or lower extremity symptoms. Related Data Home Medications ?Medication ?Instructions ?Recorded ?Confirmed ?Last Taken ?Type ascorbate calcium (vitamin C) 500 500 mg PO DAILY PRN 09/23/19 01/16/25 Unknown History mg tablet aspirin 81 mg chewable tablet 81 mg PO DAILY 09/23/19 01/16/25 Unknown History (Josette Chewable Low Dose Aspirin) cyanocobalamin (vitamin B-12) 500 500 mcg PO DAILY 09/23/19 01/16/25 Unknown History mcg tablet (Vitamin B-12) vitamin E (dl, acetate) 180 mg 400 unit PO DAILY PRN 09/23/19 01/16/25 Unknown History (400 unit) capsule Allergies Allergy/AdvReac Type Severity Reaction Status Date / Time Quinolones Allergy Mild Unknown Verified 01/16/25 14:11 tetracycline Allergy Mild Unknown Verified 01/16/25 14:11 levofloxacin Allergy Unknown Swelling Verified 01/16/25 14:11 nitrofurantoin Allergy Unknown Unknown Verified 01/16/25 14:11 Penicillins Allergy Unknown Itching Verified 01/16/25 14:11 Sulfa (Sulfonamide Allergy Unknown Itching Verified 01/16/25 14:11 Antibiotics) sulfanilamide Allergy Unknown Unknown Verified 01/16/25 14:11 Review of Systems Review of Systems: As reviewed above in HPI [facility] Past Medical History Medical History Acute pain of right shoulder Obesity Diabetes mellitus CKD (chronic kidney disease), stage III Essential (primary) hypertension Hypothyroidism Polyosteoarthritis, unspecified Surgical History Surgical History Status post hysterectomy with oophorectomy History of appendectomy Family History Family History Mother Family history of thyroid disease Hypertension Carcinoma of colon Father Cerebrovascular accident Family history of cardiovascular disease Social History Social History Social History: Smoking status: Never smoker Second hand tobacco smoke exposure: No Alcohol intake: never Substance use: never Substance use type: does not use Lack of Transportation: No Lack of Food: Never True Current Housing: I Have Housing Concerned About Future Housing: No Difficulty Paying Gas/Electric Bills: No Difficulty Paying for Meds: No Currently Unemployed: YES Education: Decline to Answer Difficulty w/ Childcare or Family Care: No Living arrangements: alone Occupation/Education: retired Gender identity (if verbalized by the patient): Female Sexual Orientation (if Verbalized by the Patient): Straight or Heterosexual Exam Narrative: GENERAL: [Well-appearing, well-nourished, and in no acute distress.] HEAD: [Normocephalic, atraumatic.] EYES: [PERRLA and EOMI.] ENT: Nares clear, no rhinorrhea or epistaxis. Mucous membranes moist. NECK: Supple. CHEST: [Clear to auscultation. No respiratory distress.] HEART: [Regular rate and rhythm]. No murmur heard. [Normal peripheral pulses.] ABDOMEN: [Soft, nondistended], [nontender], [No rigidity or guarding] EXTREMITIES: Limited abduction or flexion of left shoulder secondary to pain, passive range of motion is full but elicits pain. 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 Able to oppose each digit, make a thumbs-up sign, okay sign. No midline tenderness to the spinal column. No overlying skin changes or step-offs. SKIN: Warm, dry, no rash. NEURO: [No focal deficits]. Alert and oriented [x3.] PSYCH: [Normal mood and affect.] Course Vital Signs Vital signs: Vital Signs Temperature 36.3 C L 02/12/25 10:08 Pulse Rate 77 02/12/25 10:08 Respiratory Rate 16 02/12/25 10:08 Pulse Oximetry 100 02/12/25 10:08 Temperature 36.3 C L 02/12/25 10:08 Pulse Rate 77 02/12/25 10:08 Respiratory Rate 16 02/12/25 10:08 Pulse Oximetry 100 02/12/25 10:08 MDM - Extremity Injury (Upper) MDM Narrative Medical decision making narrative: 84-year-old female presenting after mechanical slip and fall at [employer] parking lot. She landed onto grass onto her left side as complaining of left-sided shoulder pain. Distal neuro vasculature is intact with good range of motion passively but active range of motion is limited secondary to pain. Her neurological examination is otherwise unremarkable. No midline tenderness or step-off/trauma to the spine appreciated. Did hit her head but did not lose consciousness. No overt signs of head trauma. She has normal vital signs, unremarkable blood pressure, no tachycardia, fever, hypoxia. Suspicion presently is for shoulder fracture versus a contusion versus very unlikely a dislocation. Given her age she is high risk for intracranial pathology after head injury so a CT head was also added on to a shoulder x-ray. She is given a combination of Gilbert and Toradol for analgesia and re-evaluated. CT of the head shows no acute intracranial process, no fracture. Old lacunar infarcts identified and chronic small-vessel disease. Shoulder x-ray shows left AC and glenohumeral osteoarthritis but no fractures. Patient re-evaluated with improvement in pain and stable for discharge home at this time. Provided a sling for comfort and encouraged to take Tylenol and ibuprofen at home. Medical Records Attestation: I reviewed the patient's medical records. Imaging Data Attestation: I personally reviewed and interpreted this imaging study as follows: My impression: Impressions Shoulder X-Ray 02/12/25 10:50 IMPRESSION: Mild left acromioclavicular and glenohumeral osteoarthritis. Head CT 02/12/25 10:56 IMPRESSION: 1. No fracture or acute intracranial process. 2. A few old lacunar infarcts at the bilateral basal ganglia. 3. Age-related changes including mild diffuse volume loss and moderate to severe scattered nonspecific white matter hypoattenuation consistent with chronic small vessel ischemic disease. Discharge Plan Discharge Clinical Impression: CHI (closed head injury), Fall, Contusion of left shoulder Patient Disposition: Home Condition: Stable Instructions: Antibiotic Form, How to Use a Sling (ED), Contusion in Adults (ED) Additional Instructions: Your x-rays and images show no fractures or dislocation. No acute problem aside from some osteoarthritis and likely a contusion to the soft tissues in your shoulder. Take Tylenol and ibuprofen for any aches or pains. Will give you a sling for comfort. Return to normal activities as tolerated Patient Language: Jordanian Prescriptions: No Action metronidazole 0.75 % cream 1 applic TOPICAL DAILY Qty: 45 3RF lorazepam [Ativan] 0.5 mg tablet 0.5 mg PO TID PRN (Reason: anxiety) Qty: 30 0RF levothyroxine 125 mcg tablet 125 mcg PO DAILY Qty: 90 2RF metformin 500 mg tablet extended release 24 hr 500 mg PO DAILY Qty: 60 5RF Rx Instructions: 1 po qd x 1 wk, then 2 po qd. Take w/ largest meal. cyanocobalamin (vitamin B-12) [Vitamin B-12] 500 mcg tablet 500 mcg PO DAILY ascorbate calcium (vitamin C) 500 mg tablet 500 mg PO DAILY PRN vitamin E (dl, acetate) 400 unit capsule 400 unit PO DAILY PRN aspirin [Josette Chewable Aspirin] 81 mg tablet,chewable 81 mg PO DAILY clonidine HCl 0.1 mg tablet See Rx Instructions .ROUTE .COMPLEX Qty: 200 2RF Dose Instruction: TAKE 1 TABLET BY MOUTH TWICE DAILY Rx Instructions: TAKE 1 TABLET BY MOUTH TWICE DAILY irbesartan 150 mg tablet See Rx Instructions .ROUTE .COMPLEX Qty: 100 2RF Dose Instruction: TAKE 1 TABLET BY MOUTH DAILY Rx Instructions: TAKE 1 TABLET BY MOUTH DAILY amlodipine 10 mg tablet See Rx Instructions .ROUTE .COMPLEX Qty: 100 2RF Dose Instruction: TAKE 1 TABLET BY MOUTH DAILY Rx Instructions: TAKE 1 TABLET BY MOUTH DAILY hydrochlorothiazide 25 mg tablet See Rx Instructions .ROUTE .COMPLEX Qty: 100 2RF Dose Instruction: TAKE 1 TABLET BY MOUTH DAILY Rx Instructions: TAKE 1 TABLET BY MOUTH DAILY carvedilol 25 mg tablet See Rx Instructions .ROUTE .COMPLEX Qty: 180 3RF Dose Instruction: TAKE 1 TABLET BY MOUTH TWICE DAILY WITH FOOD Rx Instructions: TAKE 1 TABLET BY MOUTH TWICE DAILY WITH FOOD Follow-up/Referrals: Marlo Huang MD [Primary Care Provider] - Time of Disposition: 11:16
[2025-02-12] MEDS: KETOROLAC 10 MG TABLET PO (11:02)
[2025-02-12 11:39] VITALS: BP 172/64; PULSE 85; RESP 16; O2SAT 98
[2025-02-12 11:49] VITALS: BP 172/64; PULSE 85; RESP 16; O2SAT 98
== END 2025-02-12 11:51 | disposition home or self-care (01) ==
PROVIDERS: Emergency Provider Student in an Organized Health Care Education/Training Program; PCP Family Medicine
DX: S40.012A Contusion of left shoulder, initial encounter (principal); S09.90XA Unspecified injury of head, initial encounter; E11.22 Type 2 diabetes mellitus with diabetic chronic kidney disease; I12.9 Hypertensive chronic kidney disease with stage 1 through stage 4 chronic kidney disease, or unspecified chronic kidney disease; N18.30 Chronic kidney disease, stage 3 unspecified; E03.9 Hypothyroidism, unspecified; E66.9 Obesity, unspecified; Z68.33 Body mass index [BMI] 33.0-33.9, adult; M19.012 Primary osteoarthritis, left shoulder; Z90.710 Acquired absence of both cervix and uterus; Z79.899 Other long term (current) drug therapy; Z79.84 Long term (current) use of oral hypoglycemic drugs; Z79.82 Long term (current) use of aspirin; W01.0XXA Fall on same level from slipping, tripping and stumbling without subsequent striking against object, initial encounter
CPT/HCPCS: 70450; 73030; 99284; A4565; A9270